=== PATIENT | female | born 1960 | race Caucasian/White ===

== ENCOUNTER → 2021-08-11 08:34 | Outpatient (CLI) | payer MEDICARE, SELFPAY ==
[2021-08-11 09:13] LABS: Basophils % 0.3 % (0.1-2.0); Eosinophils # 0.2 K/mm3 (0.0-0.4); Eosinophils % 3.3 % (0.1-12.0); Hematocrit 45.4 % (37.0-47.0); Hemoglobin 15.3 g/dL (12.2-16.2); Lymphocytes # 0.4 K/mm3 (0.7-4.5); Lymphocytes % 7.7 % (10-50); Mean Corpuscular HGB Conc 33.7 g/dL (31.8-35.4); Mean Corpuscular Hemoglobin 32.8 pg (27.0-31.2); Mean Corpuscular Volume 97.3 fl (81-99); Mean Platelet Volume 7.8 fl (7.4-10.4); Monocytes # 0.5 K/mm3 (0.1-1.0); Monocytes % 10.1 % (1.7-9.3); Neutrophils # 3.9 K/mm3 (1.8-7.8); Neutrophils % 78.5 % (37.0-80.0); Platelet Count 300 K/mm3 (142-424); Red Blood Count 4.66 M/mm3 (4.20-5.40); Red Cell Distribution Width 13.4 % (11.5-17.5)
[2021-08-11 09:54] LABS: Alanine Aminotransferase 58 U/L (12-78); Albumin Level 4.5 g/dl (3.5-5.0); Albumin/Globulin Ratio 1.8 (1.1-1.8); Alkaline Phosphatase 72 U/L (38-126); Anion Gap 12.3 mEq/L (5-15); Aspartate Amino Transferase 41 U/L (14-36); Bilirubin,Total 0.9 mg/dl (0.2-1.3); Blood Urea Nitrogen 15 mg/dl (7-17); Calcium 9.8 mg/dl (8.4-10.2); Carbon Dioxide 29 mmol/L (22.0-30.0); Chloride 104 mmol/L (98-107); Chol/HDL Ratio 2.3 (1-3.5); Cholesterol 149 mg/dl (140-200); Estimated Glomerular Filt Rate 101 ml/min (>60); GFR (African American) 123 ML/MIN (>60); Globulin 2.5 g/dL (1.3-3.2); Glucose 116 mg/dl (74-100); HDL Cholesterol 64 mg/dl (40-60); Potassium 4.3 mmoL/L (3.5-5.1); Sodium 141 mmol/L (136-145); Triglycerides 125 mg/dl (30-150); VLDL Cholesterol 25 mg/dL (0-40)
[2021-08-11 10:05] LABS: Direct LDL Cholesterol 51.47 mg/dL (100-129)
[2021-08-11 10:17] LABS: 25-OH Vitamin D, Total 55.9 ng/mL (30-100)
[2021-08-11 10:21] LABS: Hemoglobin A1C 6.3 % (4.0-6.0)
[2021-08-11 10:30] LABS: Thyroid Stimulating Hormone 1.91 uIU/mL (0.465-4.68)
== END ==
PROVIDERS: PCP Psychiatry & Neurology Clinical Neurophysiology; Visit Provider Family Medicine
DX: E11.9 Type 2 diabetes mellitus without complications (principal); R29.90 Unspecified symptoms and signs involving the nervous system; E55.9 Vitamin D deficiency, unspecified
CPT/HCPCS: 36415; 80053; 80061; 82306; 83036; 84443; 85025

== ENCOUNTER → 2021-10-05 13:38 | Outpatient (CLI) | payer MEDICARE, SELFPAY ==
[2021-10-05 15:23] VITALS: BMI 33.1
== END ==
PROVIDERS: PCP Family Medicine; Visit Provider Family Medicine
DX: Z71.3 Dietary counseling and surveillance (principal); E11.9 Type 2 diabetes mellitus without complications
CPT/HCPCS: 97802

== ENCOUNTER → 2022-04-27 12:10 | Outpatient (CLI) | payer MEDICARE, SELFPAY ==
--- NOTE | 2022-04-27 12:37 | CT_ITS ---
FINAL REPORT TECHNIQUE: Multiple axial CT sections were performed from the foramen magnum to the vertex. Coronal reformatted images were also obtained. Precontrast and postcontrast injection images were obtained. This study was performed with technique to keep radiation doses as low as reasonably achievable, (ALARA). Individualized dose reduction techniques using automated exposure control or adjustment of mA and/or kV according to the patient size were employed. CLINICAL HISTORY: Fall with Vision changes, hx of ms FINDINGS: There is age-appropriate atrophy. There are areas of low attenuation in the white matter, may represent areas of demyelination in a patient with history with multiple sclerosis. The ventricles are normal in size. There is no evidence of hemorrhage. No masses are identified. No extra-axial fluid collection is seen. There is mild mucosal thickening in the left maxillary sinus. No osseous abnormality is seen on the bone window images. Postcontrast images demonstrate no abnormal enhancement. IMPRESSION: Atrophy and low attenuation areas in the white matter, may represent areas of demyelination in a patient with history of multiple sclerosis. Reviewed, Interpreted and Dictated by Reji Mario III, MD Transcribed by Yasmin Eugene Authenticated and . [facility]
[2022-04-27 12:40] LABS: Basophils # 0.2 K/mm3 (0-0.2); Eosinophils # 0.1 K/mm3 (0.0-0.4); Hematocrit 43.4 % (37.0-47.0); Hemoglobin 14.2 g/dL (12.2-16.2); Lymphocytes # 0.9 K/mm3 (0.7-4.5); Lymphocytes % 12.7 % (10-50); Mean Corpuscular HGB Conc 32.8 g/dL (31.8-35.4); Mean Corpuscular Hemoglobin 31.4 pg (27.0-31.2); Mean Corpuscular Volume 95.7 fl (81-99); Mean Platelet Volume 7.2 fl (7.4-10.4); Monocytes # 0.5 K/mm3 (0.1-1.0); Monocytes % 7.1 % (1.7-9.3); Neutrophils # 5.7 K/mm3 (1.8-7.8); Neutrophils % 77.2 % (37.0-80.0); Platelet Count 305 K/mm3 (142-424); Red Blood Count 4.53 M/mm3 (4.20-5.40); Red Cell Distribution Width 12.9 % (11.5-17.5); White Blood Count 7.3 K/mm3 (4.8-10.8)
[2022-04-27 12:48] LABS: Chloride 103 mmol/L (98-107); Sodium 142 mmol/L (136-145)
[2022-04-27 12:49] LABS: Potassium 3.6 mmoL/L (3.5-5.1)
[2022-04-27 12:51] LABS: Alanine Aminotransferase 37 U/L (12-78); Albumin Level 4.6 g/dl (3.5-5.0); Alkaline Phosphatase 76 U/L (38-126); Anion Gap 10.6 mEq/L (5-15); Aspartate Amino Transferase 33 U/L (14-36); Bilirubin,Total 0.4 mg/dl (0.2-1.3); Blood Urea Nitrogen 16 mg/dl (7-17); Carbon Dioxide 32 mmol/L (22.0-30.0); Estimated Glomerular Filt Rate 63 ml/min (>60); GFR (African American) 77 ML/MIN (>60)
[2022-04-27 12:52] LABS: Albumin/Globulin Ratio 1.5 (1.1-1.8); Calcium 9.2 mg/dl (8.4-10.2); Glucose 95 mg/dl (74-100); Total Protein,Serum 7.6 g/dl (6.3-8.2)
[2022-04-27 13:22] LABS: Thyroid Stimulating Hormone 1.02 uIU/mL (0.465-4.68)
== END ==
PROVIDERS: PCP Family Medicine; Visit Provider Family Medicine
DX: G35 Multiple sclerosis (principal); F41.9 Anxiety disorder, unspecified
CPT/HCPCS: 36415; 70470; 80053; 82565; 84443; 84520; 85025; Q9967

== ENCOUNTER → 2022-11-08 23:00 | Outpatient (CLI) | payer MEDICARE, SELFPAY | LOC: LAB.DROPOF 11-09 00:10 | PROVIDERS: PCP Family Medicine; Visit Provider Family Medicine | DX: N39.0 Urinary tract infection, site not specified (principal); B96.29 Other Escherichia coli [E. coli] as the cause of diseases classified elsewhere | CPT/HCPCS: 87086; 87088; 87186 ==

== ENCOUNTER → 2022-12-16 23:53 | Outpatient (CLI) | payer MEDICARE, SELFPAY | PROVIDERS: PCP Family Medicine; Visit Provider Family Medicine | DX: R30.0 Dysuria (principal) | CPT/HCPCS: 87086 ==

== ENCOUNTER → 2022-12-31 14:29 | Outpatient (CLI) | payer MEDICARE, SELFPAY ==
--- NOTE | 2022-12-31 14:29 | MR_ITS ---
PROCEDURE INFORMATION: Exam: MR Lumbar Spine Without Contrast Exam date and time: 12/31/2022 3:46 PM Age: 62 years old Clinical indication: Low back pain; Patient HX: Lower back pain with numbness down legs. HX of ms TECHNIQUE: Imaging protocol: Magnetic resonance imaging of the lumbar spine without contrast. COMPARISON: No relevant prior studies available. FINDINGS: Bones/joints: The alignment is anatomic. The vertebral body heights are maintained. There is disc space height loss with type 2 endplate degenerative changes at L5-S1. No suspicious marrow signal. Spinal cord: Visualized cord, conus medullaris and cauda equina are unremarkable without compression. L1-L2: No significant disc bulge or herniation. No severe spinal canal stenosis. No significant neural foraminal narrowing. L2-L3: No significant disc bulge or herniation. No severe spinal canal stenosis. No significant neural foraminal narrowing. L3-L4: No significant disc bulge or herniation. No severe spinal canal stenosis. No significant neural foraminal narrowing. L4-L5: L4-L5 there is diffuse disc bulging with superimposed central focal disc protrusion causing mild stenosis of the spinal canal. Minimal degenerative facet arthrosis is seen without significant neural foraminal compromise. L5-S1: L5-S1 diffuse disc bulging is seen with mild stenosis of the spinal canal. The disc material abuts the ventral contour of both descending S1 nerve root without significant compression. There is minimal degenerative facet arthrosis also seen with mild narrowing of the left neural foramen. Soft tissues: Unremarkable. IMPRESSION: Degenerative disc disease with mild spinal canal stenosis L4-S1, as described. Disc material also abuts the descending S1 nerve roots bilaterally without significant compression of the L5-S1 level
== END ==
PROVIDERS: PCP Family Medicine; Visit Provider Family Medicine
DX: M54.50 Low back pain, unspecified (principal); M79.604 Pain in right leg; M79.605 Pain in left leg
CPT/HCPCS: 72148; 76376

== ENCOUNTER 2023-05-24 11:49 | Day surgery (SDC) | payer MEDICARE, SELFPAY ==
[2023-05-24 12:52] VITALS: BP 145/80; PULSE 65; RESP 18; TEMP 36.4; O2SAT 98; BMI 30.2
[2023-05-24] MEDS: methylPREDNISolone ACETATE 80MG/ML VIAL 80 MG (12:58)
[2023-05-24 12:59] VITALS: BP 154/72; PULSE 66; RESP 18; O2SAT 99
[2023-05-24 13:01] VITALS: BP 154/72; PULSE 74; RESP 18; O2SAT 99
--- NOTE | 2023-05-24 13:04 | P.PCN_ITS ---
Procedure Date: 05/24/23 Time: 13:00 Anesthesiologist:: Manny Brink CRNA Complications:: None Pre-procedure Diagnosis:: Degenerative disc lumbar spine multilevels. Lumbar radiculopathy. Post-procedure Diagnosis:: Same. Indications for Procedure:: Patient is a very pleasant 62-year-old female comes our clinic today for lumbar epidural steroid injection. Patient reports low back pain that she describes as constant, dull, aching. Patient also reports bilateral hip and leg radicular sy mptoms at times. She rates her pain 6/10. Procedure Details:: Procedure: Lumbar epidural steroid injection under fluoroscopy Informed consent was obtained and the risks and benefits of the procedure were explained to the patient. The patient was taken to the procedure room and noninvasive monitors placed, including noninvasive blood pressure cuff and pulse oximeter. The back was viewed using C-arm Fluoroscopy and prepped using Chloraprep as a cleansing solution and the L4-L5 interspace was palpated. Skin and subcutaneous tissues were anesthetized using lidocaine 1.5% and a 25-gauge needle. After this, an 18-gauge Touhy epidural needle was placed into the L4-L5 interspace and advanced using fluoroscopic guidance and loss of resistance to ai r until the epidural space was encountered. After confirmation of needle placement in the epidural space, with dye, a solution containing normal saline, 3 mL and Depo-Medrol 80 mg were incrementally injected into the lumbar epidural space. The patient tolerated the procedure well with no complications. The patient was observed in the Pain Clinic and then discharged home neurologically intact. Plan and Disposition:: Patient was discharged without incident.
[2023-05-24 13:15] VITALS: BP 140/82; PULSE 63; RESP 18; O2SAT 98
== END 2023-05-24 13:15 | disposition home or self-care (01) ==
PROVIDERS: PCP Family Medicine; Visit Provider Nurse Anesthetist, Certified Registered
DX: M51.16 Intervertebral disc disorders with radiculopathy, lumbar region (principal)
CPT/HCPCS: 62323; J1040

== ENCOUNTER 2023-06-10 11:19 | Outpatient (POV) | payer MEDICARE, SELFPAY ==
[2023-06-10 11:33] VITALS: BP 133/77; PULSE 73; RESP 20; O2SAT 98; BMI 31.2
--- NOTE | 2023-06-10 12:02 | EXP.PAIN.SOA ---
[facility] Pain Management SOAP Note Subjective:: Patient is a pleasant 62-year-old female who presents today for follow-up of lumbar epidural steroid injection L4-L5 on 05/24/2023. Patient is being treated for degenerative disc disease of lumbar spine with lumbar radiculopathy symptoms. Today she rates her pain a 3 out of 10. Patient does state that she had 100% relief following this injection up until around yesterday. Patient does state that her pain is still better than what it was originally. She states that it is a aching, throbbing sensation with numbness into her legs. Patient does have a significant history of multiple sclerosis and does believe part of the numbness is related to that. She also has a history of SI issues. Patient does state that the low back pain has been going on for approximately 1 year or so unrelated to any specific trauma or injury. She does state the pain is worse with certain activities such as doing the laundry or dishes. Patient has had physical therapy in the past related to balance issues however states she did not notice significant overall improvement. Patient does states she gets better relief laying flat or resting. She does state the pain interferes with her sleeping even. She states that she has hide trazodone and [place] in the past however she did not do well with the combination and discontinued all of this. Her [place] has been reviewed and is appropriate. Review of Systems: General: No recent weight changes, no fever, no sleep disturbances Respiratory: No cough, no shortness of air, no recurring pulmonary infections Cardiovascular/peripheral vascular: No chest pain, no palpitations, no edema, no shortness of breath Gastrointestinal: No new onset incontinence, normal bowel movements reported Genitourinary: No new onset incontinence Musculoskeletal: Low back pain Psychiatric: [Normal mood/affect] Neurological: [Denies weakness in extremities], [denies balance issues] Objective:: Physical Exam: General: Alert and oriented x3, no acute distress, pleasant and cooperative Lungs: Respirations even and unlabored, symmetrical chest expansion Eyes: PERRL Musculoskeletal: Flexion and extension of lumbar [spine] somewhat guarded secondary to pain, [antalgic gait noted] Neurological: Speech clear, no gross sensory deficit FINDINGS: Bones/joints: The alignment is anatomic. The vertebral body heights are maintained. There is disc space height loss with type 2 endplate degenerative changes at L5-S1. No suspicious marrow signal. Spinal cord: Visualized cord, conus medullaris and cauda equina are unremarkable without compression. L1-L2: No significant disc bulge or herniation. No severe spinal canal stenosis. No significant neural foraminal narrowing. L2-L3: No significant disc bulge or herniation. No severe spinal canal stenosis. No significant neural foraminal narrowing. L3-L4: No significant disc bulge or herniation. No severe spinal canal stenosis. No significant neural foraminal narrowing. L4-L5: L4-L5 there is diffuse disc bulging with superimposed central focal disc protrusion causing mild stenosis of the spinal canal. Minimal degenerative facet arthrosis is seen without significant neural foraminal compromise. L5-S1: L5-S1 diffuse disc bulging is seen with mild stenosis of the spinal canal. The disc material abuts the ventral contour of both descending S1 nerve root without significant compression. There is minimal degenerative facet arthrosis also seen with mild narrowing of the left neural foramen. Soft tissues: Unremarkable. IMPRESSION: Degenerative disc disease with mild spinal canal stenosis L4-S1, as described. Disc material also abuts the descending S1 nerve roots bilaterally without significant compression of the L5-S1 level Assessment:: Degenerative disc disease of lumbar spine with lumbar radiculopathy symptoms Plan:: Patient has had significant improvement following her lumbar epidural. I will order the patient a compounded cream for pain follow-up in 2 weeks for reevaluation of symptoms and plan of care. Patient has been instructed to contact the clinic with any concerns before the next appointment. Dr. Perez has reviewed this note and agrees with this plan of care. This note was dictated using voice recognition software and make contain errors or omissions. [facility] Disclaimer: The information contained in this section may have been updated after the patient was seen, as this information can be updated by other users. Medical History Depression Generalized anxiety disorder Insomnia Lumbar disc disease Major depressive disorder Multiple sclerosis Muscle weakness UTI (urinary tract infection) Social History Smoking Status: Current every day smoker tobacco type: cigarettes packs per day: 1 alcohol intake: never substance use type: denies use current occupational status: other Travel in the last 8 weeks: None household members: spouse housing: house
== END 2023-06-10 23:59 ==
LOC: SC.PAIN 11:20
PROVIDERS: PCP Family Medicine; Visit Provider Nurse Practitioner Family
DX: M51.16 Intervertebral disc disorders with radiculopathy, lumbar region (principal)
CPT/HCPCS: 99212; G0463